=== PATIENT | male | born 1970 | race Two or more races ===

== ENCOUNTER 2016-11-19 15:21 | Emergency (ER) | payer BC, OTHER ==
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
[2016-11-19] MEDS ORDERED: oxyCODONE HCL/ACETAMINOPHEN 1 TAB TABLET PO ONE (17:24)
[2016-11-19] MEDS ORDERED: oxyCODONE HCL/ACETAMINOPHEN 1 TAB TABLET ONE (17:28)
[2016-11-19 17:33] VITALS: BP 125/89
== END 2016-11-19 18:30 | disposition home or self-care (01) ==
LOC: ER 15:21
DX: S40.012A Contusion of left shoulder, initial encounter (principal); V89.2XXA Person injured in unspecified motor-vehicle accident, traffic, initial encounter